=== PATIENT | male | born 1945 | race Caucasian/White ===

== ENCOUNTER 2017-08-24 19:54 | Emergency (ER) | payer MEDICARE ==
[~2017-08-24 19:54] MED LIST: ISOVUE-370 76%-LOCM 1 ML ONE
--- NOTE | 2017-08-24 20:18 | CT ---
CT OF THE BRAIN WITHOUT CONTRAST 08/24/17 COMPARISON: None. HISTORY: Stroke alert. Right sided weakness and inability to speak. TECHNIQUE: Multiple contiguous axial images were obtained in a CT of the brain without contrast. FINDINGS: The brain is normal in morphology and attenuation without focal lesions or confluent areas of infarct ion. There is no evidence of hydrocephalus, intracranial hemorrhage, or extra-axial fluid collection. The calvarium and overlying soft tissues are unremarkable. The visualized paranasal sinuses and masto id air cells are well aerated. IMPRESSION: No evidence of acute intracranial abnormality. Dr. Castellanos notified of the findings at 8:06 p.m. on 08/24/17.
[2017-08-24 20:33] LABS: #Eosinphils 0.2 thou/uL (0.0-0.7); #Lymphocytes 1.8 thou/uL (1.20-3.40); #Monocytes 0.6 thou/uL (0.11-0.59); #Neutrophils 5.7 thou/uL (1.40-6.50); %Basophils 0.3 % (0.0-1.0); %Eosinophils 2.3 % (0.0-10.0); %Lymphocytes 21.2 % (21.0-51.0); %Neutrophils 69.2 % (42.0-75.0); Hemoglobin 14.5 g/dL (14.0-18.0); Mean Corpuscular HGB CONC 35.5 g/dL (32.0-36.0); Mean Corpuscular Hemoglobin 31.7 pg (27.0-31.0); Mean Corpuscular Volume 89.3 fL (78.0-98.0); Mean Platelet Volume 6.3 fL (7.4-10.4); Platelet Count 217 thou/uL (130-400); RBC Distribution Width 13.2 % (11.5-14.5); Red Blood Cell (RBC) Count 4.56 mill/uL (4.70-6.10); White Blood Cell (WBC) Count 8.3 thou/uL (4.8-10.8)
[2017-08-24 20:41] LABS: INR-International Normal Ratio 1.1; PTT 27.4 SEC (22.9-36.1); Prothrombin Time 14.1 SEC (12.0-14.7)
[2017-08-24 20:53] LABS: ALT (SGPT) 15 U/L (8-55); AST (SGOT) 21 U/L (5-34); Albumin 3.7 g/dL (3.4-4.8); Alkaline Phosphatase 76 U/L (40-150); Anion Gap 17 mmol/L (10-20); BUN (Urea Nitrogen) 17 mg/dL (8.4-25.7); Bilirubin, Total 0.4 mg/dL (0.2-1.2); Calc. Creatinine Clearance 0 mL/min (70-130); Calcium 8.9 mg/dL (7.8-10.44); Carbon Dioxide 21 mmol/L (23-31); Chloride 104 mmol/L (98-107); Estimated GFR-MDRD 87; Globulin 3.3 g/dL (2.4-3.5); Glucose 94 mg/dL (83-110); Potassium 3.9 mmol/L (3.5-5.1); Sodium 138 mmol/L (136-145)
[2017-08-24 20:57] LABS: CKMB 2.3 ng/mL (0-6.6); Troponin I Less than 0.010 ng/mL (< 0.028)
--- NOTE | 2017-08-24 21:18 | CT ---
CTA OF THE NECK WITH CONTRAST CTA OF THE HEAD WITH CONTRAST 08/24/17 COMPARISON: CT brain 08/24/17. HISTORY: Right sided weakness and inability to speak; left sided stroke. TECHNIQUE: 1. Multiple contiguous axial images were obtained in a CTA of the neck with contrast. 3D sagitta l and coronal MIP reformats were performed. 2. Multiple contiguous axial images were obtained in a CTA of the head with contrast. 3D sagitta l and coronal MIP reformats were performed. FINDINGS: CTA NECK: Interstitial lung markings are seen in the lung apices. There is no mediastinal lymphadenopathy. No c ervical adenopathy is seen. No mucosal abnormality is seen within the neck. Both common carotid arteries have a normal origin from the aortic arch. The subclavian arteries are p atent without significant atherosclerotic disease. No significant atherosclerotic disease is seen in the common carotid arteries. There is a small amount of atherosclerotic disease in the bilateral internal carotid arteries just di stal to the carotid bifurcation. Less than 10% stenosis is seen per NASCET criteria. The external car otid arteries are patent. Both vertebral arteries are patent without significant atherosclerotic disease. CTA HEAD: The bilateral intracranial internal carotid arteries are patent. There is abrupt cutoff of the left m iddle cerebral artery in the M1 segment. The anterior cerebral arteries and right middle cerebral art corky are unremarkable. No aneurysm is seen in the anterior circulation. The vertebral arteries form a normal appearing basilar artery. The posterior cerebral arteries and ce rebellar arteries are patent. There is no evidence of aneurysmal dilatation, focal stenosis, or occlu violeta in the anterior circulation. IMPRESSION: 1. Unremarkable CTA of the neck. 2. 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 This likely is the cause for the patient's s ymptoms. Dr. Castellanos notified of the findings at 8:21 p.m. on 08/24/17.
== END 2017-08-24 21:18 | disposition short-term general hospital (02) ==
LOC: ERS 19:54
DX: I63.411 Cerebral infarction due to embolism of right middle cerebral artery (principal)
CPT/HCPCS: 70450; 70496; 70498; 80053; 82553; 82962; 84484; 85025; 85610; 85730; 93005; J2997; 36415; 36416; 51701; 96374

== ENCOUNTER 2017-09-23 04:58 | Emergency (ER) | payer MEDICARE ==
--- NOTE | 2017-09-23 09:20 | RAD ---
ABDOMEN ONE VIEW: History: 72-year-old male with history of PEG tube check with Gastrografin. Comparison: 09-20-17 FINDINGS: There is contrast within the stomach that has been injected through the PEG tube. No evidence of extr avasation. No evidence for overt bowel obstruction. IMPRESSION: PEG tube in satisfactory location without evidence of extravasation. No bowel obstruction. POS: [facility]
[2017-09-23] MEDS ORDERED: MD-Gastroview 120 ML BOT ONE (14:45)
== END 2017-09-23 05:38 | disposition home or self-care (01) ==
LOC: ERS 04:58
DX: Z43.1 Encounter for attention to gastrostomy (principal); I10 Essential (primary) hypertension; J44.9 Chronic obstructive pulmonary disease, unspecified; I48.91 Unspecified atrial fibrillation; K50.90 Crohn's disease, unspecified, without complications; Z86.73 Personal history of transient ischemic attack (TIA), and cerebral infarction without residual deficits
CPT/HCPCS: 43760; 74018; B4087

== ENCOUNTER 2017-09-25 11:00 | Emergency (ER) | payer MEDICARE | END 2017-09-25 13:50 | disposition home or self-care (01) | LOC: ERS 11:00 | DX: Z43.1 Encounter for attention to gastrostomy (principal); I10 Essential (primary) hypertension; Z86.73 Personal history of transient ischemic attack (TIA), and cerebral infarction without residual deficits; I48.91 Unspecified atrial fibrillation; J44.9 Chronic obstructive pulmonary disease, unspecified; G47.30 Sleep apnea, unspecified; E78.5 Hyperlipidemia, unspecified; Z79.899 Other long term (current) drug therapy; Z79.82 Long term (current) use of aspirin | CPT/HCPCS: 43760 ==

== ENCOUNTER 2017-10-12 04:56 | Emergency (ER) | payer MEDICARE ==
[2017-10-12] MEDS ORDERED: Lidocaine 2% Jelly 5 ML TUBE ONE (05:21)
--- NOTE | 2017-10-12 10:24 | RAD ---
PRELIMINARY REPORT/[facility]/EMERGENTY AFTER-HOURS PROCEDURE XR Abdomen, 1 View CLINICAL HISTORY: 72 years old, male; Device placement; Gi device; Peg tube; Patient HX: Eval for peg tube placement. ; Additional info: Gastrografin used as contrast TECHNIQUE: Frontal supine view of the abdomen/pelvis. COMPARISON: No relevant prior studies available. FINDINGS: Gastrointestinal tract: Unremarkable. Organs: Unremarkable. Bones/joints: Unremarkable. Tubes, lines and devices: PEG tube projecting over the stomach. Oral contrast within the stomach. IMPRESSION: PEG tube in the stomach. Thank you for allowing us to participate in the care of your patient. Dictated and Authenticated by: Buck Bowser MD 10/12/2017 7:10 AM Central Time ([place] & [place]) FINAL REPORT SUPINE ABDOMEN: Contrast was injected through a PEG tube and abdominal film taken. The stomach opacifies indicating adequate position of the PEG tube. I am in agreement with the preliminary report. POS: [facility]
[2017-10-12] MEDS ORDERED: GASTROGRAFIN 30 ML BOT ONE (15:00)
== END 2017-10-12 07:40 | disposition home or self-care (01) ==
LOC: ERS 04:56
DX: Z43.1 Encounter for attention to gastrostomy (principal); I10 Essential (primary) hypertension; I48.91 Unspecified atrial fibrillation; J44.9 Chronic obstructive pulmonary disease, unspecified; E78.5 Hyperlipidemia, unspecified; Z79.82 Long term (current) use of aspirin; Z79.899 Other long term (current) drug therapy
CPT/HCPCS: 43760; 74018

== ENCOUNTER 2017-12-04 16:38 | Emergency (ER) | payer MEDICARE ==
--- NOTE | 2017-12-04 17:31 | RAD ---
CHEST 1 VIEW: Date: 12/04/17 HISTORY: Stroke. Facial droop. Mental status change. Fall. FINDINGS: There is cardiomegaly. Slight elongation of the aorta. Diminished lung volumes. Increased interstitia l opacities are presumed to be chronic. There is rightward rotation of the patient. No definite conso lidation or mass. No pneumothorax or osseous abnormalities. IMPRESSION: No acute cardiopulmonary process. Evaluation is limited by patient rightward rotation and diminished lung volumes. POS: [facility]
--- NOTE | 2017-12-04 17:43 | CT ---
CT HEAD NONCONTRAST: Date: 12/04/17 COMPARISON: 08/24/17. INDICATION: Emergency exam, aphasia, stroke symptoms. FINDINGS: Large region of left cerebral hemispheric encephalomalacia occupying left MCA distribution is present . The ventricular system is mildly prominent due to ex vacuo dilatation. There is no intracranial hem orrhage, mass effect, or significant midline shift. IMPRESSION: 1. No acute intracranial hemorrhage or mass effect. 2. Large region of left cerebral hemispheric encephalomalacia with ex vacuo dilatation of ventricula r system. POS: [facility]
--- NOTE | 2017-12-04 17:45 | CT ---
CT CERVICAL SPINE WITHOUT CONTRAST: Date: 12/04/17 HISTORY: Fall. Post-traumatic pain. FINDINGS: No craniocervical dissociation. Intact odontoid process. Appropriate alignment of the lateral masses of C1 and C2. Straightening of normal cervical lordosis is presumed to be due to patient position. Mu scle spasm, or cervical collar. Current study is not tailored to assess for ligamentous injury. There is no prevertebral soft tissue swelling. Soft tissue neck structures, upper mediastinum, and caridad ng apices are unremarkable. There is atherosclerosis of both carotid arteries. Mild to moderate central canal stenosis and moderate to severe foraminal narrowing at multiple levels due to degenerative change. Evaluation is limited due to technique. Cervical spine vertebral body height is maintained. There is no fracture. IMPRESSION: 1. No cervical spine fracture. 2. Straightening of normal cervical lordosis as detailed above. POS: [facility]
[2017-12-04 17:55] LABS: #Basophils 0.1 thou/uL (0.0-0.2); #Eosinphils 0.3 thou/uL (0.0-0.7); #Lymphocytes 2.5 thou/uL (1.20-3.40); #Monocytes 0.7 thou/uL (0.11-0.59); #Neutrophils 6.6 thou/uL (1.40-6.50); %Basophils 0.6 % (0.0-1.0); %Eosinophils 2.9 % (0.0-10.0); %Lymphocytes 24.4 % (21.0-51.0); %Monocytes 7.3 % (0.0-10.0); %Neutrophils 64.7 % (42.0-75.0); Hemoglobin 15.3 g/dL (14.0-18.0); Mean Corpuscular HGB CONC 33.6 g/dL (32.0-36.0); Mean Corpuscular Hemoglobin 30.3 pg (27.0-31.0); Mean Corpuscular Volume 90.4 fL (78.0-98.0); Mean Platelet Volume 7.5 fL (7.4-10.4); Platelet Count 278 thou/uL (130-400); RBC Distribution Width 14.8 % (11.5-14.5); Red Blood Cell (RBC) Count 5.04 mill/uL (4.70-6.10); White Blood Cell (WBC) Count 10.2 thou/uL (4.8-10.8)
[2017-12-04 18:16] LABS: ALT (SGPT) 16 U/L (8-55); AST (SGOT) 24 U/L (5-34); Albumin 3.7 g/dL (3.4-4.8); Alkaline Phosphatase 99 U/L (40-150); Anion Gap 14 mmol/L (10-20); BUN (Urea Nitrogen) 13 mg/dL (8.4-25.7); Bilirubin, Total 0.8 mg/dL (0.2-1.2); Calc. Creatinine Clearance 0 mL/min (70-130); Calcium 9.4 mg/dL (7.8-10.44); Carbon Dioxide 24 mmol/L (23-31); Chloride 105 mmol/L (98-107); Estimated GFR-MDRD Greater than 90; Globulin 4.3 g/dL (2.4-3.5); Glucose 83 mg/dL (83-110); Magnesium 1.7 mg/dL (1.6-2.6); Potassium 3.8 mmol/L (3.5-5.1); Sodium 139 mmol/L (136-145)
[2017-12-04 18:21] LABS: CKMB 1.6 ng/mL (0-6.6); Troponin I Less than 0.010 ng/mL (< 0.028)
[2017-12-04] MEDS ORDERED: Lorazepam 2 MG/ML VIAL ONE (19:02)
--- NOTE | 2017-12-04 19:02 | RAD ---
RIGHT SHOULDER THREE VIEWS: 12/04/17 INDICATION: Pain. FINDINGS: There is osteoarthritis without evidence of fracture or dislocation. IMPRESSION: No acute osseous abnormality. POS: [facility]
--- NOTE | 2017-12-07 13:47 | EKG ---
Test Reason : Blood Pressure : / mmHG Vent. Rate : 081 BPM Atrial Rate : 078 BPM P-R Int : 000 ms QRS Dur : 134 ms QT Int : 436 ms P-R-T Axes : 000 -77 -29 degrees QTc Int : 506 ms Atrial fibrillation with premature ventricular or aberrantly conducted complexes Left axis deviation Right bundle branch block Possible Lateral infarct , age undetermined Inferior infarct , age undetermined Abnormal ECG Confirmed by LIYAH ATKINSON DO ([id number]), city editor XANDER DUARTE ([id number]) on 12/07/2017 1:46:53 PM Referred By: Confirmed By:LIYAH ATKINSON DO
== END 2017-12-04 20:43 ==
LOC: ERS 16:38
DX: F03.90 Unspecified dementia, unspecified severity, without behavioral disturbance, psychotic disturbance, mood disturbance, and anxiety (principal); I10 Essential (primary) hypertension; I48.91 Unspecified atrial fibrillation; J44.9 Chronic obstructive pulmonary disease, unspecified; E78.5 Hyperlipidemia, unspecified; I25.10 Atherosclerotic heart disease of native coronary artery without angina pectoris; F41.9 Anxiety disorder, unspecified
CPT/HCPCS: 70450; 71045; 72125; 80053; 82553; 83735; 84484; 85025; 93005; 96374; J2060

== ENCOUNTER 2018-01-07 23:15 | Emergency (ER) | payer MEDICARE | END 2018-01-08 01:04 | disposition home or self-care (01) | LOC: ERS 23:15 | DX: Z43.1 Encounter for attention to gastrostomy (principal); Z86.73 Personal history of transient ischemic attack (TIA), and cerebral infarction without residual deficits; I10 Essential (primary) hypertension; I48.91 Unspecified atrial fibrillation; J44.9 Chronic obstructive pulmonary disease, unspecified; G47.30 Sleep apnea, unspecified; E78.5 Hyperlipidemia, unspecified; F41.9 Anxiety disorder, unspecified; Z79.899 Other long term (current) drug therapy; Z79.82 Long term (current) use of aspirin | CPT/HCPCS: 43760; B4087 ==

== ENCOUNTER 2018-07-22 09:29 | Outpatient (CLI) | payer MEDICARE ==
--- NOTE | 2018-07-22 11:41 | CT ---
CT ABDOMEN AND PELVIS WITH AND WITHOUT CONTRAST: Technique: Multiple axial tomograms were performed through the abdomen and pelvis pre and post IV con trast. Post contrast images obtained with portal venous phase and delayed venous phase. Indications: Hematuria. History of renal calculi. Comparison: None. FINDINGS: CT ABDOMEN WITHOUT CONTRAST: There is a 1.2 cm calculus in the upper pole collecting structures of the left kidney. There is a tin y 2 mm calculus in the lower pole collecting structures of the left kidney. The possibility of one or two other tiny 1 mm calculi seen in midpole collecting structures of both kidneys. No hydronephrosis. The ureters are normal caliber. The bladder is minimally distended. There is a tiny calculus measuring in the 2 mm range just beyond the left UVJ in the bladder floor, and there is another tiny calculus measuring 1 mm just beyond the right UVJ in the floor of the bladder. There is another tiny calculus measuring 2 mm at the orifice of the urethra along the posterior wall of the bladder. On post contrast images, both kidneys show equal and symmetric function. There is a 1.4 cm low densit y cystic structure inferior left kidney. There are two other subcentimeter low density cystic lesions in the inferior pole of the left kidney. There is a 1.0 cm cystic lesion in the inferior right renal cortex. On delayed sequence, there is contrast in the collecting structures which appear unremarkable. No dil atation. Lung bases show chronic parenchymal change. Liver, spleen, and pancreas unremarkable. Post cholecystectomy changes. Adrenal glands normal. There is a PEG tube in place which appears adequately positioned. Bowel loops unremarkable. Bowel loops unremarkable. Aorta normal caliber. Prostate upper normal size with prostatic calcification. There is fluid density seen in the right inguinal canal with mild dilatation of the right inguinal ca nal. Extensive hypertrophic bone is seen surrounding the right hip. IMPRESSION: 1. The precontrast images show a 1.2 cm calculus upper pole collecting structure left kidney with oth er tiny nonobstructing calculi in the upper collecting structures of both kidneys. 2. There are 3 tiny calculi seen in the floor of the bladder as described above. 3. Small renal cystic lesions as described. 4. Dilatation with fluid within the right inguinal canal suggesting right inguinal hernia. POS: [facility]
== END 2018-07-22 09:30 | disposition home or self-care (01) ==
LOC: CT 09:29
PROVIDERS: ATTEND Urology
DX: N30.01 Acute cystitis with hematuria (principal); Z87.442 Personal history of urinary calculi; N20.0 Calculus of kidney; N21.0 Calculus in bladder; N28.1 Cyst of kidney, acquired
CPT/HCPCS: 74178